=== PATIENT | male | born 1960 | race Caucasian/White ===

== ENCOUNTER → 2024-08-25 10:20 | Outpatient (REF) | payer SELFPAY | LOC: HWRAD 10:20 | PROVIDERS: ATTENDING PHYSICIAN Family Medicine | DX: Z00.00 Encounter for general adult medical examination without abnormal findings (principal); E78.2 Mixed hyperlipidemia; I10 Essential (primary) hypertension; F39 Unspecified mood [affective] disorder | CPT/HCPCS: 75571 ==